=== PATIENT | female | born 1960 | race Caucasian/White ===

== ENCOUNTER → 2019-10-18 | Outpatient (CLI) | payer OTHER ==
--- NOTE | 2019-10-19 15:01 | MM ---
Reason for exam: screening (asymptomatic). Last mammogram was performed 4 years and 1 month ago. History: Patient is postmenopausal. Took hormonal contraceptives for 10 years. Physical Findings: A clinical breast exam by your physician is recommended on an annual basis and results should be correlated with mammographic findings. MG Screening Mammo w CAD Bilateral CC and MLO view(s) were taken. Prior study comparison: September 12, 2015, bilateral MG 3d screening mammo w/cad. January 03, 2009, left breast mammogram dig work up. The breast tissue is heterogeneously dense. This may lower the sensitivity of mammography. Stable benign calcifications. There is no discrete abnormality. No significant changes when compared with prior studies. ASSESSMENT: Benign, BI-RAD 2 RECOMMENDATION: Routine screening mammogram of both breasts in 1 year.
== END | disposition home or self-care (01) ==
LOC: RADMAMWWP 08:02
PROVIDERS: ATTEND Nurse Practitioner Women's Health
DX: Z12.31 Encounter for screening mammogram for malignant neoplasm of breast (principal)
CPT/HCPCS: 77067

== ENCOUNTER → 2021-01-22 | Outpatient (CLI) | payer OTHER ==
--- NOTE | 2021-01-23 10:49 | MM ---
Reason for exam: screening (asymptomatic). Last mammogram was performed 1 year and 3 months ago. History: Patient is postmenopausal. Took hormonal contraceptives for 10 years. Physical Findings: A clinical breast exam by your physician is recommended on an annual basis and results should be correlated with mammographic findings. MG Screening Mammo w CAD Bilateral CC and MLO view(s) were taken. Prior study comparison: October 18, 2019, bilateral MG screening mammo w CAD. September 12, 2015, bilateral MG 3d screening mammo w/cad. The breast tissue is heterogeneously dense. This may lower the sensitivity of mammography. Benign appearing bilateral calcifications. No significant changes when compared with prior studies. ASSESSMENT: Benign, BI-RAD 2 RECOMMENDATION: Routine screening mammogram of both breasts in 1 year.
== END | disposition home or self-care (01) ==
LOC: RADMAMWWP 13:04
PROVIDERS: ATTEND Family Medicine
DX: Z12.31 Encounter for screening mammogram for malignant neoplasm of breast (principal); Z78.0 Asymptomatic menopausal state
CPT/HCPCS: 77067

== ENCOUNTER 2021-10-03 18:45 | Emergency (ER) | payer OTHER ==
--- NOTE | 2021-10-03 20:39 | XR ---
INDICATION: Patient age:Female; 61 years old; Reason for study: cough congestion; PHH. COMPARISON: None. TECHNIQUE: Frontal and lateral views of the chest. FINDINGS: Lungs/Pleura: There is no evidence of pleural effusion, focal consolidation, or pneumothorax. Pulmonary vascularity: Unremarkable. Heart/mediastinum: Cardiomediastinal silhouette is unremarkable. Musculoskeletal: No acute osseous pathology. IMPRESSION: No acute cardiopulmonary disease/process.
[2021-10-04] MEDS ORDERED: SODIUM CHLORIDE 0.9% 500 ML 500 ML IV ONE (00:06)
[2021-10-04] MEDS ORDERED: ONDANSETRON 4 MG/2 ML VIAL IVP STA (00:06)
[2021-10-04] MEDS ORDERED: KETOROLAC 30 MG/ML 1 ML VIAL IVP STA (00:06)
[2021-10-04] MEDS ORDERED: SODIUM CHLORIDE 0.9% 50 ML IVPB ONE (00:30)
[2021-10-04] MEDS ORDERED: SOTROVIMAB (EUA) 500 MG in SODIUM CHLORIDE 0.9% 100 ML IVPB ONE (00:30)
--- NOTE | 2021-10-04 01:32 | ED ---
General Adult HPI - General Chief complaint: Shortness of Breath Stated complaint: Covid+/Wants infusion Time Seen by Provider: 10/03/21 23:52 Source: patient, family Mode of arrival: ambulatory Limitations: no limitations - History of Present Illness Initial comments: 61-year-old female patient presents to the emergency department today for monoclonal antibodies after testing positive for COVID-19. States that she has been sick for the last 3-4 days with cough, congestion, nausea. States whenever she moves she becomes nauseated. She states she's had low-grade fevers. Denies any vomiting or diarrhea. Denies shortness of breath. She does have history of diabetes. She denies taking any medication for her symptoms. Patient denies any recent rash, chest pain, abdominal pain, constipation, back pain, numbness, tingling, hematuria, dysuria, urinary urgency, urinary frequency, headache, visual changes, or any other complaints. - Related Data Previous Rx's Medication Instructions Recorded Ondansetron [Zofran ODT] 4 mg PO Q8HR PRN #10 tab 10/04/21 guaiFENesin-DM 600/30MG [Mucinex 1 each PO Q12HR #10 tab 10/04/21 Dm] Allergies Allergy/AdvReac Type Severity Reaction Status Date / Time Sulfa (Sulfonamide Allergy Rash/Hives Verified 10/03/21 20:07 Antibiotics) Review of Systems ROS Statement: Those systems with pertinent positive or pertinent negative responses have been documented in the HPI. ROS Other: All systems not noted in ROS Statement are negative. Past Medical History Past Medical History: Diabetes Mellitus History of Any Multi-Drug Resistant Organisms: None Reported Past Surgical History: No Surgical Hx Reported Past Psychological History: No Psychological Hx Reported Smoking Status: Former smoker Past Alcohol Use History: Occasional Past Drug Use History: Marijuana General Exam Limitations: no limitations General appearance: alert, in no apparent distress, other (This is a well- developed, well-nourished adult female in no acute distress. ) ENT exam: Present: normal exam, normal oropharynx, mucous membranes moist Respiratory exam: Present: normal lung sounds bilaterally. Absent: respiratory distress, wheezes, rales, rhonchi, stridor Cardiovascular Exam: Present: regular rate, normal rhythm, normal heart sounds. Absent: systolic murmur, diastolic murmur, rubs, gallop, clicks GI/Abdominal exam: Present: soft, normal bowel sounds. Absent: distended, tenderness, guarding, rebound, rigid Neurological exam: Present: alert, oriented X3, CN II-XII intact Psychiatric exam: Present: normal affect, normal mood Skin exam: Present: warm, dry, intact, normal color. Absent: rash Course Vital Signs 10/03/21 10/04/21 19:58 00:07 Temperature 99 F 99.2 F Pulse Rate 64 62 Respiratory 22 22 Rate Blood Pressure 137/63 130/62 O2 Sat by Pulse 98 97 Oximetry Medical Decision Making - Medical Decision Making 61-year-old female patient presents to the emergency department today for antibody infusion after testing positive for COVID-19. Physical examination reveals clear equal lung sounds. Oxygen saturation is normal. Other vitals are normal. Chest x-ray was negative. She did again test positive here so we did order monoclonal antibodies. She tolerated the infusion well. She was discharged to follow-up with the primary care physician for recheck in 1-2 days. Return parameters were discussed in detail. She verbalizes understanding and agrees with this plan. My attending is Dr. Steinberg. - Lab Data Lab Results 10/03/21 Range/Units 20:10 Coronavirus (PCR) Detected A (Not Detectd) - Radiology Data Radiology results: report reviewed, image reviewed 2 views of the chest are obtained. Report was reviewed in its entirety. Impression by Dr. Avila shows no acute cardio pulmonary disease/process. Disposition Clinical Impression: COVID-19 Disposition: HOME SELF-CARE Condition: Good Instructions (If sedation given, give patient instructions): Coronavirus Disease 2019 (COVID-19) Additional Instructions: Tips to help you feel better: -Maintain adequate fluid intake - especially water. -Rest, you are healing your body will require extra sleep. -Eat even if you do not feel like it - broth, jello, toast are fine if you cannot eat full meals. -Take tylenol and motrin alternating (if you have no allergies or have not been instructed to avoid these medications) to help with body aches and fevers. -Obtain over the counter vitamin C, zinc, and vitamin D3. -Take medications as prescribed. Follow-up with your primary care physician for recheck in 1-2 days. Return for any new, worsening, or concerning symptoms. Prescriptions: guaiFENesin-DM 600/30MG [Mucinex Dm] 1 each PO Q12HR #10 tab Ondansetron [Zofran ODT] 4 mg PO Q8HR PRN #10 tab PRN Reason: Nausea Is patient prescribed a controlled substance at d/c from ED?: No Referrals: Arturo Hinojosa Jr, [Primary Care Provider] - 1-2 days Time of Disposition: 03:05
[2021-10-04 03:53] VITALS: BP 122/60; PULSE 60; RESP 20; TEMP 98.9
== END 2021-10-04 03:15 | disposition home or self-care (01) ==
LOC: EC 18:45
DX: U07.1 COVID-19 (principal); E11.9 Type 2 diabetes mellitus without complications; F12.90 Cannabis use, unspecified, uncomplicated; Z88.2 Allergy status to sulfonamides; Z87.891 Personal history of nicotine dependence
CPT/HCPCS: 99283; 96374; 96375; 87635; 71046; J2405; J1885; Q0247

== ENCOUNTER 2024-04-07 17:04 | Inpatient (IN) | payer OTHER ==
--- NOTE | 2024-04-07 17:18 | ED ---
General Adult HPI - General Chief complaint: Allergic Reaction Stated complaint: reaction to medicaton Time Seen by Provider: 04/07/24 17:10 Source: patient Mode of arrival: ambulatory Limitations: no limitations - History of Present Illness Initial comments: 63-year-old female presenting with chief complaint of nausea and vomiting. Patient recently was started on Ozempic. On Tuesday she took her second injection. For the last 3 days she has had severe nausea and vomiting. She states she cannot keep anything down. No abdominal pain. No chest pain or difficulty breathing. No fevers or URI-like symptoms. She denies diarrhea. She cannot remember when her last bowel movement was. - Related Data Previous Rx's Medication Instructions Recorded Ondansetron [Zofran ODT] 4 mg PO Q8HR PRN #10 tab 10/04/21 guaiFENesin-DM 600/30MG [Mucinex 1 each PO Q12HR #10 tab 10/04/21 Dm] Allergies Allergy/AdvReac Type Severity Reaction Status Date / Time Sulfa (Sulfonamide Allergy Rash/Hives Verified 10/03/21 20:07 Antibiotics) Review of Systems ROS Statement: Those systems with pertinent positive or pertinent negative responses have been documented in the HPI. ROS Other: All systems not noted in ROS Statement are negative. Past Medical History Past Medical History: Diabetes Mellitus History of Any Multi-Drug Resistant Organisms: None Reported Past Surgical History: No Surgical Hx Reported Past Psychological History: No Psychological Hx Reported Smoking Status: Former smoker Past Alcohol Use History: Occasional Past Drug Use History: Marijuana General Exam Limitations: no limitations General appearance: alert, in no apparent distress Head exam: Present: atraumatic, normocephalic Eye exam: Present: normal appearance, EOMI Neck exam: Present: normal inspection. Absent: meningismus Respiratory exam: Absent: respiratory distress Cardiovascular Exam: Present: regular rate GI/Abdominal exam: Absent: distended Neurological exam: Present: alert, oriented X3 Psychiatric exam: Present: normal affect, normal mood Skin exam: Present: normal color Course Vital Signs 04/07/24 04/07/24 04/07/24 17:06 18:25 21:51 Temperature 97.8 F Pulse Rate 88 82 64 Respiratory 16 16 18 Rate Blood Pressure 159/76 116/67 127/54 O2 Sat by Pulse 98 95 95 Oximetry 04/08/24 02:14 Temperature Pulse Rate 66 Respiratory 18 Rate Blood Pressure 128/80 O2 Sat by Pulse 96 Oximetry Medical Decision Making - Medical Decision Making Was pt. sent in by a medical professional or institution ([facility], [facility], urgent care, hospital, or [facility]...) When possible be specific @ -No Did you speak to anyone other than the patient for history (EMS, parent, family, police, friend...)? What history was obtained from this source @ -No Did you review nursing and triage notes (agree or disagree)? Why? @ -I reviewed and agree with nursing and triage notes Were old charts reviewed (outside hosp., previous admission, EMS record, old EKG, old radiological studies, urgent care reports/EKG's, [facility] records)? Report findings @ -No old charts were reviewed Differential Diagnosis (chest pain, altered mental status, abdominal pain women, abdominal pain men, vaginal bleeding, weakness, fever, dyspnea, syncope, headache, dizziness, GI bleed, back pain, seizure, CVA, palpatations, mental health, musculoskeletal)? @ -Differential includes gastroenteritis, bowel obstruction, constipation, DKA, this is not an all-inclusive list EKG interpreted by me (3pts min.). @ -As above X-rays interpreted by me (1pt min.). @ -None done CT interpreted by me (1pt min.). @ -None done U/S interpreted by me (1pt. min.). @ -None done What testing was considered but not performed or refused? (CT, X-rays, U/S, labs)? Why? @ -EKG was ordered, patient refused What meds were considered but not given or refused? Why? @ -None Did you discuss the management of the patient with other professionals (professionals i.e. [facility], [employer], lab, RT, psych nurse, social media sr strategy manager, satellite tv technician, t eacher, navigating officer, housing case manager)? Give summary @ -I spoke with Dr. Brown who accepted admission Was smoking cessation discussed for >3mins.? @ -No Was critical care preformed (if so, how long)? @ -No Were there social determinants of health that impacted care today? How? (Homelessness, low income, unemployed, alcoholism, drug addiction, transportation, low edu. Level, literacy, decrease access to med. care, halfway, rehab)? @ -No Was there de-escalation of care discussed even if they declined (Discuss DNR or withdrawal of care, Hospice)? DNR status @ -No What co-morbidities impacted this encounter? (DM, HTN, Smoking, COPD, CAD, Cancer, CVA, ARF, Chemo, Hep., AIDS, mental health diagnosis, sleep apnea, morbid obesity)? @ -Diabetes Was patient admitted / discharged? Hospital course, mention meds given and route, prescriptions, significant lab abnormalities, going to OR and other pertinent info. @ -63-year-old female presenting with chief complaint of nausea and vomiting. Symptoms started after she had her second dose of Ozempic on Tuesday. She has no localized abdominal tenderness. CBC shows signs of hemoconcentration, likely due to dehydration. CMP shows anion gap of 22 and CO2 of 11. Glucose 92. Urine has 4+ ketones with large leukocytes, 100 WBCs, and 16 squamous cells. Positive acetone. After patient received a liter of fluid and was able to tolerate oral intake repeat BMP was drawn with little improvement, carbon dioxide 13 anion gap 17. We are concerned for euglycemic DKA. Patient was started on D5 half-normal saline with potassium chloride, as discussed with my attending. EKG was ordered which the patient refused. She will be admitted for observation. She is agreeable with this plan. I discussed this case with my attending Dr. Guzmán Undiagnosed new problem with uncertain prognosis? @ -No Drug Therapy requiring intensive monitoring for toxicity (Heparin, Nitro, Insulin, Cardizem)? @ -No Were any procedures done? @ -No Diagnosis/symptom? @ -Euglycemic DKA Acute, or Chronic, or Acute on Chronic? @ -Acute Uncomplicated (without systemic symptoms) or Complicated (systemic symptoms)? @ -Complicated Side effects of treatment? @ -No Exacerbation, Progression, or Severe Exacerbation? @ -No Poses a threat to life or bodily function? How? (Chest pain, [place], NH, pneumonia, PE, COPD, DKA, ARF, appy, cholecystitis, CVA, Diverticulitis, Homicidal, Suicidal, threat to staff... and all critical care pts) @ -Yes - Lab Data Result diagrams: 04/07/24 17:31 04/07/24 19:51 Lab Results 04/07/24 04/07/24 04/07/24 Range/Units 17:31 17:31 18:25 WBC 8.7 (3.8-10.6) k/uL RBC 5.52 H (3.80-5.40) m/uL Hgb 16.1 H (11.4-16.0) gm/dL Hct 51.2 H (34.0-46.0) % MCV 92.7 (80.0-100.0) fL MCH 29.1 (25.0-35.0) pg MCHC 31.4 (31.0-37.0) g/dL RDW 13.2 (11.5-15.5) % Plt Count 457 H (150-450) k/uL MPV 7.1 Neutrophils % 59 % Lymphocytes % 32 % Monocytes % 6 % Eosinophils % 1 % Basophils % 1 % Neutrophils # 5.1 (1.3-7.7) k/uL Lymphocytes # 2.8 (1.0-4.8) k/uL Monocytes # 0.5 (0-1.0) k/uL Eosinophils # 0.1 (0-0.7) k/uL Basophils # 0.1 (0-0.2) k/uL Sodium 138 (137-145) mmol/L Potassium 4.3 (3.5-5.1) mmol/L Chloride 105 (98-107) mmol/L Carbon Dioxide 11 L (22-30) mmol/L Anion Gap 22 mmol/L BUN 19 H (7-17) mg/dL Creatinine 0.80 (0.52-1.04) mg/dL Est GFR (CKD-EPI)AfAm >90 (>60 ml/min/1.73 sqM) Est GFR (CKD-EPI)NonAf 79 (>60 ml/min/1.73 sqM) Glucose 92 (74-99) mg/dL Calcium 9.3 (8.4-10.2) mg/dL Total Bilirubin 0.7 (0.2-1.3) mg/dL AST 21 (14-36) U/L ALT 18 (4-34) U/L Alkaline Phosphatase 87 (38-126) U/L Total Protein 7.7 (6.3-8.2) g/dL Albumin 4.8 (3.5-5.0) g/dL Amylase 46 (30-110) U/L Lipase 103 (23-300) U/L Urine Color Colorless Urine Appearance Cloudy H (Clear) Urine pH 5.5 (5.0-8.0) Ur Specific [place] 1.029 (1.001-1.035) Urine Protein Trace H (Negative) Urine Glucose (UA) 4+ H (Negative) Urine Ketones 4+ H (Negative) Urine Blood Trace H (Negative) Urine Nitrite Negative (Negative) Urine Bilirubin 1+ H (Negative) Urine Urobilinogen 2.0 (<2.0) mg/dL Ur Leukocyte Esterase Large H (Negative) Urine RBC 5 (0-5) /hpf Urine WBC 100 H (0-5) /hpf Ur Squamous Epith Cells 16 H (0-4) /hpf Urine Bacteria Rare H (None) /hpf Hyaline Casts 1 (0-2) /lpf Urine Mucus Few H (None) /hpf Acetone, Qual (Negative) 04/07/24 Range/Units 19:51 WBC (3.8-10.6) k/uL RBC (3.80-5.40) m/uL Hgb (11.4-16.0) gm/dL Hct (34.0-46.0) % MCV (80.0-100.0) fL MCH (25.0-35.0) pg MCHC (31.0-37.0) g/dL RDW (11.5-15.5) % Plt Count (150-450) k/uL MPV Neutrophils % % Lymphocytes % % Monocytes % % Eosinophils % % Basophils % % Neutrophils # (1.3-7.7) k/uL Lymphocytes # (1.0-4.8) k/uL Monocytes # (0-1.0) k/uL Eosinophils # (0-0.7) k/uL Basophils # (0-0.2) k/uL Sodium 137 (137-145) mmol/L Potassium 4.2 (3.5-5.1) mmol/L Chloride 107 (98-107) mmol/L Carbon Dioxide 13 L (22-30) mmol/L Anion Gap 17 mmol/L BUN 18 H (7-17) mg/dL Creatinine 0.66 (0.52-1.04) mg/dL Est GFR (CKD-EPI)AfAm >90 (>60 ml/min/1.73 sqM) Est GFR (CKD-EPI)NonAf >90 (>60 ml/min/1.73 sqM) Glucose 81 (74-99) mg/dL Calcium 8.5 (8.4-10.2) mg/dL Total Bilirubin (0.2-1.3) mg/dL AST (14-36) U/L ALT (4-34) U/L Alkaline Phosphatase (38-126) U/L Total Protein (6.3-8.2) g/dL Albumin (3.5-5.0) g/dL Amylase (30-110) U/L Lipase (23-300) U/L Urine Color Urine Appearance (Clear) Urine pH (5.0-8.0) Ur Specific [place] (1.001-1.035) Urine Protein (Negative) Urine Glucose (UA) (Negative) Urine Ketones (Negative) Urine Blood (Negative) Urine Nitrite (Negative) Urine Bilirubin (Negative) Urine Urobilinogen (<2.0) mg/dL Ur Leukocyte Esterase (Negative) Urine RBC (0-5) /hpf Urine WBC (0-5) /hpf Ur Squamous Epith Cells (0-4) /hpf Urine Bacteria (None) /hpf Hyaline Casts (0-2) /lpf Urine Mucus (None) /hpf Acetone, Qual Positive (Negative) Disposition Clinical Impression: Ketoacidosis due to diabetes mellitus Disposition: ADMITTED IP TO THIS HOSP Condition: Stable Time of Disposition: 21:56
[2024-04-07] MEDS: ONDANSETRON 4 MG/2 ML VIAL IVP STA (17:29)
[2024-04-07] MEDS: SODIUM CHLORIDE 0.9% 1,000 ML IV STA (17:29)
[2024-04-07 17:40] LABS: Basophils # (A) 0.1 k/uL (0-0.2); Basophils % (A) 1 %; Eosinophils # (A) 0.1 k/uL (0-0.7); Eosinophils % (A) 1 %; HCT 51.2 % (34.0-46.0); HGB 16.1 gm/dL (11.4-16.0); Lymphocytes # (A) 2.8 k/uL (1.0-4.8); Lymphocytes % (A) 32 %; MCH 29.1 pg (25.0-35.0); MCHC 31.4 g/dL (31.0-37.0); MCV 92.7 fL (80.0-100.0); Mean Platelet Volume 7.1; Monocytes # (A) 0.5 k/uL (0-1.0); Monocytes % (A) 6 %; Neutrophils # (A) 5.1 k/uL (1.3-7.7); Neutrophils % (A) 59 %; Platelet Count 457 k/uL (150-450); RBC 5.52 m/uL (3.80-5.40); RDW 13.2 % (11.5-15.5); WBC 8.7 k/uL (3.8-10.6)
[2024-04-07 18:12] LABS: ALT 18 U/L (4-34); AST 21 U/L (14-36); African American GFR (CKD) >90 (>60 ml/min/1.73 sqM); Albumin 4.8 g/dL (3.5-5.0); Alkaline Phosphatase 87 U/L (38-126); Amylase 46 U/L (30-110); Anion Gap 22 mmol/L; Blood Urea Nitrogen 19 mg/dL (7-17); Calcium 9.3 mg/dL (8.4-10.2); Carbon Dioxide 11 mmol/L (22-30); Chloride 105 mmol/L (98-107); Glucose 92 mg/dL (74-99); Lipase 103 U/L (23-300); Non-African American GFR(CKD) 79 (>60 ml/min/1.73 sqM); Potassium 4.3 mmol/L (3.5-5.1); Sodium 138 mmol/L (137-145); Total Bilirubin 0.7 mg/dL (0.2-1.3); Total Protein 7.7 g/dL (6.3-8.2)
[2024-04-07 18:54] LABS: Appearance,Urine Cloudy (Clear); Bacteria,Urine Rare /hpf; Bilirubin,Urine 1+ (Negative); Blood,Urine Trace (Negative); Color,Urine Colorless; Glucose,Urine (UA) 4+ (Negative); Hyaline Casts,Urine 1 /lpf (0-2); Leukocyte Esterase,Urine Large (Negative); Mucus,Urine Few /hpf; Nitrite,Urine Negative (Negative); PH, Urine 5.5 (5.0-8.0); Protein,Urine Trace (Negative); RBC,Urine 5 /hpf (0-5); Specific Gravity,Urine 1.029 (1.001-1.035); Squamous Epithelial Cell,Urine 16 /hpf (0-4); WBC,Urine 100 /hpf (0-5)
[2024-04-07 18:57] LABS: Ketones,Urine 4+ (Negative)
[2024-04-07] MEDS: cefTRIAXone IN SWFI 1,000 MG/10 ML SYRINGE IVP STA (19:59)
[2024-04-07 20:20] LABS: African American GFR (CKD) >90 (>60 ml/min/1.73 sqM); Anion Gap 17 mmol/L; Blood Urea Nitrogen 18 mg/dL (7-17); Calcium 8.5 mg/dL (8.4-10.2); Carbon Dioxide 13 mmol/L (22-30); Chloride 107 mmol/L (98-107); Glucose 81 mg/dL (74-99); Non-African American GFR(CKD) >90 (>60 ml/min/1.73 sqM); Potassium 4.2 mmol/L (3.5-5.1); Sodium 137 mmol/L (137-145)
[2024-04-07] MEDS: D5-0.45% NACL WITH KCL 20MEQ/L 1,000 ML IV SCH (21:47)
[2024-04-07] MEDS ORDERED: NALOXONE 0.4 MG/ML 1 ML VIAL IV PRN (21:54)
[2024-04-07 21:59] LABS: Glucose,Whole Blood 82 mg/dL (70-110)
[2024-04-07 23:28] LABS: VBG PH 7.21 (7.31-7.41)
[2024-04-08 00:12] LABS: Glucose,Whole Blood 107 mg/dL (70-110)
[2024-04-08] MEDS: ONDANSETRON 4 MG/2 ML VIAL IVP PRN (00:12)
[2024-04-08 02:14] LABS: Glucose,Whole Blood 121 mg/dL (70-110)
[2024-04-08] MEDS ORDERED: DEXTROSE 50% SYRINGE 50 ML IVP PRN ×2 (03:47)
[2024-04-08 05:06] LABS: Glucose,Whole Blood 141 mg/dL (70-110)
[2024-04-08] MEDS: INSULIN ASPART (NovoLOG) 100 UNIT/ML VIAL SQ SCH ×2 (05:11→12:28)
[2024-04-08 06:57] LABS: Glucose,Whole Blood 131 mg/dL (70-110)
[2024-04-08 08:35] LABS: ALT 13 U/L (4-34); AST 19 U/L (14-36); African American GFR (CKD) >90 (>60 ml/min/1.73 sqM); Albumin 3.7 g/dL (3.5-5.0); Alkaline Phosphatase 66 U/L (38-126); Anion Gap 8 mmol/L; Blood Urea Nitrogen 13 mg/dL (7-17); Calcium 8.6 mg/dL (8.4-10.2); Carbon Dioxide 18 mmol/L (22-30); Chloride 110 mmol/L (98-107); Glucose 140 mg/dL (74-99); Non-African American GFR(CKD) >90 (>60 ml/min/1.73 sqM); Potassium 4.5 mmol/L (3.5-5.1); Sodium 136 mmol/L (137-145); Total Bilirubin 0.7 mg/dL (0.2-1.3); Total Protein 6.4 g/dL (6.3-8.2)
[2024-04-08 09:27] LABS: Basophils % (A) 1 %; Eosinophils # (A) 0.2 k/uL (0-0.7); Eosinophils % (A) 3 %; HCT 45.3 % (34.0-46.0); HGB 14.4 gm/dL (11.4-16.0); Lymphocytes # (A) 1.9 k/uL (1.0-4.8); Lymphocytes % (A) 31 %; MCH 29.7 pg (25.0-35.0); MCHC 31.9 g/dL (31.0-37.0); MCV 93.3 fL (80.0-100.0); Mean Platelet Volume 7.2; Monocytes # (A) 0.5 k/uL (0-1.0); Monocytes % (A) 8 %; Neutrophils # (A) 3.5 k/uL (1.3-7.7); Neutrophils % (A) 56 %; Platelet Count 328 k/uL (150-450); RBC 4.85 m/uL (3.80-5.40); RDW 13.2 % (11.5-15.5); WBC 6.3 k/uL (3.8-10.6)
[2024-04-08] MEDS: CALCIUM CARBONATE 500 MG CHEWABLE PO PRN (09:31)
[2024-04-08] MEDS: D5-0.45% NACL WITH KCL 20MEQ/L 1,000 ML IV SCH (10:48)
--- NOTE | 2024-04-08 12:15 | P.HPIM ---
History of Present Illness H&P Date: 04/08/24 Chief Complaint: nausea and vomitting This is an uncontrolled type II diabetic has been on metformin and Jardiance for some time. Recently she was started on Ozempic. She had increased her dose to 0.5 mg and had some nausea week before but this week it became more severe she has been able to keep any food down. She presented emergency room was found to have a low CO2 and a slightly elevated anion gap at 22. Her sugars were low to normal. She has been afebrile heart rate was normal oxygen status normal. Blood gas was done to find a pH of 7.2 emergency room she was started on IV fluid she did receive 1 dose of ceftriaxone based on an abnormal looking urine. She was started on insulin scale and Accu-Cheks every 6 hourly. Her home medications been held. This morning she is much improved. Labs have come back to normal. Her home medications have been continued to be held at this time. Review of Systems All systems: negative Past Medical History Past Medical History: Diabetes Mellitus History of Any Multi-Drug Resistant Organisms: None Reported Past Surgical History: No Surgical Hx Reported Past Psychological History: No Psychological Hx Reported Smoking Status: Former smoker Past Alcohol Use History: Occasional Past Drug Use History: Marijuana Medications and Allergies Home Medications Medication Instructions Recorded Confirmed Type Atorvastatin Calcium [Lipitor] 40 mg PO DAILY@1100 04/08/24 04/08/24 History Empagliflozin [Jardiance] 25 mg PO DAILY@109904/08/24 04/08/24 History Fenofibrate [Lofibra] 54 mg PO DAILY@109904/08/24 04/08/24 History Fezolinetant [Veozah] 45 mg PO DAILY@109904/08/24 04/08/24 History Gabapentin [Neurontin] 400 mg PO HS 04/08/24 04/08/24 History metFORMIN HCL [Glucophage] 500 mg PO BID@1100,2100 04/08/24 04/08/24 History Allergies Allergy/AdvReac Type Severity Reaction Status Date / Time Sulfa (Sulfonamide Allergy Rash/Hives Verified 04/08/24 12:03 Antibiotics) on entire body semaglutide [From Ozempic] AdvReac Nausea & Verified 04/08/24 12:03 Vomiting Physical Exam Vitals: Vital Signs Temp Pulse Pulse Resp BP BP Pulse Ox 04/08/24 08:00 97.3 F L 55 L 15 106/48 91 L 04/08/24 06:37 59 L 16 125/64 98 04/08/24 02:14 66 18 128/80 96 04/07/24 21:51 64 18 127/54 95 04/07/24 18:25 82 16 116/67 95 04/07/24 17:06 97.8 F 88 16 159/76 98 Intake and Output 04/07/24 04/08/24 04/08/24 22:59 06:59 14:59 Other: Weight 75.75 kg GENERAL: Well-appearing, well-nourished and in no acute distress. HEAD: Atraumatic, normocephalic. EYES: Pupils equal round and reactive to light, extraocular movements intact, sclera anicteric, conjunctiva are normal. ENT:nares patent, oropharynx clear without exudates. Moist mucous membranes. NECK: Normal range of motion, supple without lymphadenopathy or JVD, no thyromegaly LUNGS: Breath sounds clear to auscultation bilaterally and equal. No wheezes rales or rhonchi. HEART: Regular rate and rhythm without murmurs, rubs or gallops.S1S2 Normal ABDOMEN: Soft, nontender, normoactive bowel sounds. No guarding, no rebound. No masses appreciated. EXTREMITIES: Normal range of motion, no pitting or edema. No clubbing or cyanosis. NEUROLOGICAL: Cranial nerves II through XII grossly intact. Normal speech, normal gait. PSYCH: Normal mood, normal affect. SKIN: Warm, Dry, normal turgor, no rashes or lesions noted. Results CBC & Chem 7: 04/08/24 07:51 04/08/24 07:51 Labs: Abnormal Lab Results - Last 24 Hours (Table) 04/07/24 04/07/24 04/07/24 Range/Units 17:31 17:31 18:25 RBC 5.52 H (3.80-5.40) m/uL Hgb 16.1 H (11.4-16.0) gm/dL Hct 51.2 H (34.0-46.0) % Plt Count 457 H (150-450) k/uL VBG pH (7.31-7.41) VBG pCO2 (37-51) mmHg VBG HCO3 (24-28) mmol/L Sodium (137-145) mmol/L Chloride (98-107) mmol/L Carbon Dioxide 11 L (22-30) mmol/L BUN 19 H (7-17) mg/dL Glucose (74-99) mg/dL POC Glucose (mg/dL) (70-110) mg/dL Urine Appearance Cloudy H (Clear) Urine Protein Trace H (Negative) Urine Glucose (UA) 4+ H (Negative) Urine Ketones 4+ H (Negative) Urine Blood Trace H (Negative) Urine Bilirubin 1+ H (Negative) Ur Leukocyte Esterase Large H (Negative) Urine WBC 100 H (0-5) /hpf Ur Squamous Epith Cells 16 H (0-4) /hpf Urine Bacteria Rare H (None) /hpf Urine Mucus Few H (None) /hpf 04/07/24 04/07/24 04/08/24 Range/Units 19:51 22:59 02:11 RBC (3.80-5.40) m/uL Hgb (11.4-16.0) gm/dL Hct (34.0-46.0) % Plt Count (150-450) k/uL VBG pH 7.21 L (7.31-7.41) VBG pCO2 35 L (37-51) mmHg VBG HCO3 14 L (24-28) mmol/L Sodium (137-145) mmol/L Chloride (98-107) mmol/L Carbon Dioxide 13 L (22-30) mmol/L BUN 18 H (7-17) mg/dL Glucose (74-99) mg/dL POC Glucose (mg/dL) 121 H (70-110) mg/dL Urine Appearance (Clear) Urine Protein (Negative) Urine Glucose (UA) (Negative) Urine Ketones (Negative) Urine Blood (Negative) Urine Bilirubin (Negative) Ur Leukocyte Esterase (Negative) Urine WBC (0-5) /hpf Ur Squamous Epith Cells (0-4) /hpf Urine Bacteria (None) /hpf Urine Mucus (None) /hpf 04/08/24 04/08/24 04/08/24 Range/Units 05:06 06:55 07:51 RBC (3.80-5.40) m/uL Hgb (11.4-16.0) gm/dL Hct (34.0-46.0) % Plt Count (150-450) k/uL VBG pH (7.31-7.41) VBG pCO2 (37-51) mmHg VBG HCO3 (24-28) mmol/L Sodium 136 L (137-145) mmol/L Chloride 110 H (98-107) mmol/L Carbon Dioxide 18 L (22-30) mmol/L BUN (7-17) mg/dL Glucose 140 H (74-99) mg/dL POC Glucose (mg/dL) 141 H 131 H (70-110) mg/dL Urine Appearance (Clear) Urine Protein (Negative) Urine Glucose (UA) (Negative) Urine Ketones (Negative) Urine Blood (Negative) Urine Bilirubin (Negative) Ur Leukocyte Esterase (Negative) Urine WBC (0-5) /hpf Ur Squamous Epith Cells (0-4) /hpf Urine Bacteria (None) /hpf Urine Mucus (None) /hpf Thrombosis Risk Factor Assmnt - DVT/VTE Prophylaxis DVT/VTE Prophylaxis: Low risk, early ambulation encouraged Assessment and Plan (1) Ketoacidosis due to diabetes mellitus Current Visit: Yes Status: Acute Code(s): E11.10 - TYPE 2 DIABETES MELLITUS WITH KETOACIDOSIS WITHOUT COMA SNOMED Code(s): 064501281 (2) Intractable nausea and vomiting Current Visit: Yes Status: Acute Code(s): R11.2 - NAUSEA WITH VOMITING, UNSPECIFIED SNOMED Code(s): 801932639 (3) Type 2 diabetes mellitus with hyperglycemia Current Visit: Yes Status: Acute Code(s): E11.65 - TYPE 2 DIABETES MELLITUS WITH HYPERGLYCEMIA SNOMED Code(s): 287903086489459 (4) Type 2 diabetes mellitus with other specified complication Current Visit: Yes Status: Acute Code(s): E11.69 - TYPE 2 DIABETES MELLITUS WITH OTHER SPECIFIED COMPLICATION SNOMED Code(s): 98209583 (5) Hyperlipidemia, unspecified Current Visit: Yes Status: Acute Code(s): E78.5 - HYPERLIPIDEMIA, UNSPECIFIED SNOMED Code(s): 22836523 Plan: She is doing well tolerating clear liquid diet at this time. IV fluids have been hep-locked. Will continue to hold her medications continue NovoLog scale Accu-Cheks before every meal and at bedtime if she tolerates lunch she can be discharged later today.
--- NOTE | 2024-04-08 12:18 | P.DS ---
Providers Date of admission: 04/07/24 21:55 Expected date of discharge: 04/08/24 Attending physician: Wang Brown Primary care physician: Arturo Hinojosa - Discharge Diagnosis(es) (1) Ketoacidosis due to diabetes mellitus Current Visit: Yes Status: Acute (2) Intractable nausea and vomiting Current Visit: Yes Status: Acute (3) Type 2 diabetes mellitus with hyperglycemia Current Visit: Yes Status: Acute (4) Type 2 diabetes mellitus with other specified complication Current Visit: Yes Status: Acute (5) Hyperlipidemia, unspecified Current Visit: Yes Status: Acute Hospital Course: his is an uncontrolled type II diabetic has been on metformin and Jardiance for some time. Recently she was started on Ozempic. She had increased her dose to 0.5 mg and had some nausea week before but this week it became more severe she has been able to keep any food down. She presented emergency room was found to have a low CO2 and a slightly elevated anion gap at 22. Her sugars were low to normal. She has been afebrile heart rate was normal oxygen status normal. Blood gas was done to find a pH of 7.2 emergency room she was started on IV fluid she did receive 1 dose of ceftriaxone based on an abnormal looking urine. She was started on insulin scale and Accu-Cheks every 6 hourly. Her home medications been held. This morning she is much improved. Labs have come back to normal. Her home medications have been continued to be held at this time. 04/08/2024 addendum: Patient tolerating regular diet for lunch. She be discharged home. She will hold her metformin and Jardiance until tomorrow. She will discontinue Ozempic. She will follow-up in the office soon. We discussed the fact that this is most likely combination of factors from the nausea and vomiting becoming severe and the Jardiance and metformin leading to her acidosis. She will monitor for worsening symptoms when she returns home. Patient Condition at Discharge: Stable Plan - Discharge Summary New Discharge Prescriptions: Continue metFORMIN HCL [Glucophage] 500 mg PO BID@1100,2100 Empagliflozin [Jardiance] 25 mg PO DAILY@1100 Gabapentin [Neurontin] 400 mg PO HS Fenofibrate [Lofibra] 54 mg PO DAILY@1100 Atorvastatin Calcium [Lipitor] 40 mg PO DAILY@1100 Fezolinetant [Veozah] 45 mg PO DAILY@1100 Discharge Medication List Atorvastatin Calcium [Lipitor] 40 mg PO DAILY@1100 04/08/24 [History] Empagliflozin [Jardiance] 25 mg PO DAILY@109904/08/24 [History] Fenofibrate [Lofibra] 54 mg PO DAILY@109904/08/24 [History] Fezolinetant [Veozah] 45 mg PO DAILY@109904/08/24 [History] Gabapentin [Neurontin] 400 mg PO HS 04/08/24 [History] metFORMIN HCL [Glucophage] 500 mg PO BID@1100,209904/08/24 [History] Follow up Appointment(s)/Referral(s): Arturo Hinojosa Jr, [Primary Care Provider] - 1-2 days Activity/Diet/Wound Care/Special Instructions: Discontinue Ozempic at this time. Do not restart metformin and Jardiance till tomorrow morning Discharge Disposition: HOME SELF-CARE
[2024-04-08 12:24] LABS: Glucose,Whole Blood 115 mg/dL (70-110)
[2024-04-08 12:30] VITALS: BP 122/64; PULSE 68; RESP 16; TEMP 97
== END 2024-04-08 14:30 | disposition home or self-care (01) | DRG 639 ==
LOC: EC 17:04 → 3SCARD 21:55
PROVIDERS: ADMIT Family Medicine; ATTEND Family Medicine
DX: E11.11 Type 2 diabetes mellitus with ketoacidosis with coma (principal); E11.69 Type 2 diabetes mellitus with other specified complication; E78.5 Hyperlipidemia, unspecified; Z79.84 Long term (current) use of oral hypoglycemic drugs; Z79.899 Other long term (current) drug therapy; Z87.891 Personal history of nicotine dependence; Z88.2 Allergy status to sulfonamides; Z88.8 Allergy status to other drugs, medicaments and biological substances
CPT/HCPCS: 36415; 80048; 80053; 81001; 82009; 82150; 82803; 83690; 85025; 87086; 96361; 96374; 96375; 96376; 99285

== ENCOUNTER → 2024-04-12 | Outpatient (CLI) | payer OTHER ==
--- NOTE | 2024-04-12 17:16 | US ---
EXAMINATION TYPE: US venous doppler duplex LE DATE OF EXAM: 04/12/2024 5:02 PM COMPARISON: NONE CLINICAL INDICATION: Female, 63 years old with history of M79.662 PAIN LLE; No hx of DVT. Patient mckeon s not take blood thinners. Pain x a couple days. SIDE PERFORMED: Bilateral TECHNIQUE: VESSELS IMAGED: Common Femoral Vein Deep Femoral Vein Greater Saphenous Vein * Femoral Vein Popliteal Vein Small Saphenous Vein * Proximal Calf Veins (* superficial vessels) FINDINGS: The deep venous system of the right and left lower extremities were examined utilizing real time line ar array sonography with graded compression, doppler sonography and color-flow sonography. No evidenc e of deep venous thrombosis. IMPRESSION: Negative for DVT, bilateral lower extremities.
== END | disposition home or self-care (01) ==
LOC: RADUSWWP 16:27
PROVIDERS: ATTEND Family Medicine
DX: M79.662 Pain in left lower leg (principal)
CPT/HCPCS: 93970